=== PATIENT | male | born 1960 | race Caucasian/White ===

== ENCOUNTER → 2018-02-02 | Outpatient (CLI) | payer MEDICARE ==
[~2018-02-02] MED LIST: ALBU18HF INH; CARV-39 PO; CODE118S4 PO; DABI150C PO; FURO40TA6 PO; LEVO150T PO; LEVO200T PO; LEVO200T5 PO; LEVO300T4 PO; LEVO750T26 PO; LISI-167 PO; METH4TAB2 PO; MULT-658 PO; POTA20TA14 PO; PRED5TAB PO; TADA20TA PO
[2018-02-02 15:09] LABS: ALANINE AMINOTRANSFERASE 31 U/L (12-78); ALBUMIN 3.6 g/dL (3.4-5.0); ANION GAP 9 mmol/L (5-15); CALCIUM 8.5 mg/dL (8.5-10.1); CHLORIDE 110 mmol/L (98-107); CREATININE 1.33 mg/dL (0.7-1.3)
[2018-02-02 15:12] LABS: ALKALINE PHOSPHATASE 95 U/L (45-117); BILIRUBIN,TOTAL 0.9 mg/dL (0.2-1.0); TOTAL PROTEIN 6.8 g/dL (6.4-8.2)
== END | disposition home or self-care (01) ==
LOC: STAR 13:17
PROVIDERS: ATTEND Internal Medicine
DX: Z01.818 Encounter for other preprocedural examination (principal)
CPT/HCPCS: 36415; 80053; 93005

== ENCOUNTER 2018-02-09 10:01 | Day surgery (SDC) | payer MEDICARE ==
[~2018-02-09] VITALS: Ht 174 cm; Wt 182.1 kg
[2018-02-09] MEDS ORDERED: LACTATED RINGERS 1,000 ML IV SCH (10:27)
[2018-02-09 10:43] VITALS: BP 124/72
[2018-02-09] MEDS ORDERED: LIDOCAINE-MPF 2% ,5ML ONE (11:04)
[2018-02-09] MEDS ORDERED: PROPOFOL 10 MG/ML, 20ML ONE (11:04)
[2018-02-09] MEDS ORDERED: GLYCOPYRROLATE 0.2MG/1ML, 5ML ONE (11:04)
[2018-02-09] MEDS ORDERED: MIDAZOLAM 1 MG/ML, 5ML ONE (11:05)
[2018-02-09] MEDS ORDERED: METOPROLOL 1 MG/ML, 5ML IV PRN (12:00)
[2018-02-09] MEDS ORDERED: hydrALAzine 20 MG/ML, 1ML IV PRN (12:00)
[2018-02-09] MEDS ORDERED: ALBUTEROL/IPRATROPIUM 2.5MG/0.5MG, 3 ML NPPB PRN (12:00)
[2018-02-09] MEDS ORDERED: MIDAZOLAM 1 MG/ML, 2ML IV PRN (12:00)
[2018-02-09] MEDS ORDERED: FENTANYL PF 100 MCG/2ML IV PRN (12:00)
[2018-02-09] MEDS ORDERED: ONDANSETRON 2MG/ML, 2ML IV PRN (12:00)
[2018-02-09] MEDS ORDERED: DEXAMETHASONE 4 MG/ML, 1ML IV PRN (12:00)
[2018-02-09] MEDS ORDERED: LABETALOL 5MG/ML, 20ML IV PRN (12:00)
[2018-02-09] MEDS ORDERED: HYDROcodone/APAP 7.5-325MG/15ML UDC PO PRN (12:00)
[2018-02-09] MEDS ORDERED: MEPERIDINE/PF 25MG/0.5ML IVPush PRN (12:00)
[2018-02-09] MEDS ORDERED: HYDROmorphone 2 MG/ML, 1ML IVPush PRN (12:00)
[2018-02-09] MEDS ORDERED: EPHEDRINE 50 MG/ML, 1ML IM PRN (12:00)
[2018-02-09] MEDS ORDERED: DEXAMETHASONE 4 MG/ML, 1ML ONE (12:15)
== END 2018-02-09 14:15 | disposition home or self-care (01) ==
LOC: OUT 10:01
PROVIDERS: ATTEND Internal Medicine
DX: Z12.11 Encounter for screening for malignant neoplasm of colon (principal); D12.8 Benign neoplasm of rectum; K57.30 Diverticulosis of large intestine without perforation or abscess without bleeding; J44.9 Chronic obstructive pulmonary disease, unspecified; I48.91 Unspecified atrial fibrillation; E66.01 Morbid (severe) obesity due to excess calories
CPT/HCPCS: 45380; 88305; J1100; J2250; J2704; J3490; J7120

== ENCOUNTER 2018-04-28 12:40 | Emergency (ER) | payer MEDICARE ==
[~2018-04-28] VITALS: Ht 175.3 cm; Wt 180.0 kg
[2018-04-28 13:33] LABS: BASOPHILS # (AUTO) 0.03 x10^3/uL (0-0.1); BASOPHILS % (AUTO) 0 % (0-1); EOSINOPHILS # (AUTO) 0.14 x10^3/uL (0-0.4); EOSINOPHILS % (AUTO) 2 % (1-7); LYMPHOCYTES % (AUTO) 19 % (22-44); MD NO; MEAN CORPUSCULAR HEMOGLOBIN 31.1 pg (27.5-34.5); MEAN CORPUSCULAR HGB CONC 34.3 g/dL (33.2-36.2); MEAN CORPUSCULAR VOLUME 90.8 fL (81-97); MEAN PLATELET VOLUME 8.7 fL (7.4-10.4); MONOCYTES # (AUTO) 0.54 x10^3/uL (0.2-0.8); MONOCYTES % (AUTO) 7 % (2-9); NEUTROPHILS # (AUTO) 5.67 x10^3/uL (1.8-6.8); NEUTROPHILS % (AUTO) 72 % (42-75); PLATELET COUNT 233 x10^3/uL (130-400); RED BLOOD COUNT 5.16 x10^6/uL (4.38-5.82); RED CELL DISTRIBUTION WIDTH 15.4 % (9.4-14.8)
[2018-04-28 13:39] LABS: ALBUMIN 3.8 g/dL (3.4-5.0); ANION GAP 7 mmol/L (5-15); CALCIUM 8.3 mg/dL (8.5-10.1); CHLORIDE 110 mmol/L (98-107); CREATININE 1.39 mg/dL (0.7-1.3)
[2018-04-28 13:44] LABS: TROPONIN I < 0.015 ng/mL (0.000-0.045)
--- NOTE | 2018-04-28 14:51 | NUR ---
Pt reports SOB, sent here by PCP, hx of CHF, pt on cont cardiac and pulse ox monitoring, family at bedside. Pt requesting water, pt educated on NPO until cleared by MD. Denies any further needs at this time
--- NOTE | 2018-04-28 15:25 | NUR ---
Pt given water per md ruiz, pt updated on POC, cardiology consult, recheck.
[2018-04-28 15:41] VITALS: BP 109/64
--- NOTE | 2018-04-28 15:51 | NUR ---
Pt reports he is ready for discharge, unhooking himself from equipment, pt to be discharged, agrees to wait for dc paperwork.
== END 2018-04-28 16:16 | disposition home or self-care (01) ==
LOC: ED 15:37
DX: I48.2 Chronic atrial fibrillation (principal); N28.9 Disorder of kidney and ureter, unspecified; R06.00 Dyspnea, unspecified; I50.9 Heart failure, unspecified
CPT/HCPCS: 36415; 71045; 80048; 82040; 83880; 84484; 85025; 93005; 99284

== ENCOUNTER → 2018-07-12 | Outpatient (CLI) | payer MEDICARE | END | disposition home or self-care (01) | LOC: CVU 14:26 | PROVIDERS: ATTEND Internal Medicine Cardiovascular Disease | DX: I05.1 Rheumatic mitral insufficiency (principal); I42.8 Other cardiomyopathies; I48.91 Unspecified atrial fibrillation | CPT/HCPCS: 93306 ==

== ENCOUNTER → 2020-01-01 | Outpatient (CLI) | payer MEDICARE | END | disposition home or self-care (01) | LOC: CVU 08:36 | PROVIDERS: ATTEND Internal Medicine Cardiovascular Disease | DX: I08.1 Rheumatic disorders of both mitral and tricuspid valves (principal); I42.8 Other cardiomyopathies | CPT/HCPCS: 93306 ==